=== PATIENT | male | born 1940 | race Caucasian/White ===

== ENCOUNTER 2016-07-06 10:34 | Observation (INO) | payer MEDICARE, OTHER ==
[~2016-07-06] VITALS: Ht 170.2 cm; Wt 79.5 kg
[2016-07-06] MEDS ORDERED: FAMOTIDINE 20 MG INJ IV STA (16:05)
[2016-07-06] MEDS ORDERED: SOD CHLORIDE 0.9% 1,000 ML IV STA (16:05)
[2016-07-06] MEDS ORDERED: ONDANSETRON 4 MG INJ IV STA (16:05)
[2016-07-06] MEDS ORDERED: ASPIRIN 325 MG TAB PO STA (16:28)
--- NOTE | 2016-07-06 16:28 | ERA ---
ER Documentation Chief Complaint Date/Time DATE: 07/06/16 TIME: 16:15 Chief Complaint CHEST PAIN SINCE YESTERDAY HPI This is a 75-year-old [place]ralt[place] speaking male with known history of asthma and hypertension that presents to the emergency department complaining of intermittent chest pressure that has been present for roughly 24 hours. At 5: 30 PM 24 hours ago the patient indicated that he felt as though he had not "completely digested his food." He felt a burning sensation in his chest that turned into a pressure-like sensation. At 8 PM yesterday evening he had an episode of nonbloody nonbilious emesis. Roughly every 30 minutes between 8 PM and 12 midnight yesterday the patient had nonbloody nonbilious emesis. He denied any abdominal discomfort. He had no diarrhea. He stated the pressure sensation did not radiate to the neck arm back or jaw and was localized to the left substernal region. The pressure in his chest was 7 out of 10 in intensity. He did not take any analgesic medication prior to arrival. He has no headache. He denies any changes in vision. He has no shortness of breath at rest or exertion. He denies any recent travel, prolonged immobilization or hospitalizations. The patient has never seen a customer service representative in the past but his sees a customer service representative Dr. Degroot out of [facility]. The patient smoked tobacco for 30 years and quit 26 years prior to arrival and denies any alcohol use or illicit drug use ROS All systems reviewed and are negative except as per history of present illness. Medications Home Meds Reported Medications Dexlansoprazole (Dexilant) 60 Mg Cap., 60 MG PO DAILY, #30 CAP 07/06/16 Montelukast Sodium* (Montelukast Sodium*) 10 Mg Tablet, 10 MG PO DAILY, #30 TAB 07/06/16 Aspirin* (Aspirin* EC) 81 Mg Tablet., 81 MG PO DAILY, TAB 07/06/16 Amlodipine Besylate* (Amlodipine Besylate*) 10 Mg Tablet, 10 MG PO DAILY, #30 TAB 07/06/16 Clonidine Hcl* (Clonidine Hcl*) 0.1 Mg Tab, 0.1 MG PO BID, TAB 07/06/16 Valsartan* (Diovan*) 320 Mg Tablet, 320 MG PO DAILY, TAB 07/06/16 Umeclidinium [place] (Incruse Ellipta) 62.5 Mcg Blst.w.dev, 62.5 MCG IH DAILY 07/06/16 Lorazepam* (Ativan*) 2 Mg Tablet, 2 MG PO BID Y for ANXIETY, #30 TAB 07/06/16 Albuterol Sulfate* (Ventolin HFA*) 18 Gm Hfa.aer.ad, 2 PUFF INHALATION Q4H, #1 INHALER 07/06/16 Apixaban* (Eliquis*) 5 Mg Tablet, 5 MG PO BID, TAB 07/06/16 Ergocalciferol (Vitamin D2) (VITAMIN D2) 50,000 Unit Capsule, 66993 UNIT PO Q7D , CAP 07/06/16 Cyanocobalamin* (Vitamin B-12*) 1,000 Mcg Tablet.sa, 1000 MCG PO DAILY, TAB 07/06/16 Umeclidinium Brm-Vilanterol Tr (Anoro Ellipta) 62.5-25 Mcg Disk.w.dev, 1 EACH INHALATION BID, #1 DISK 07/06/16 Allergies Allergies: Coded Allergies: No Known Allergy (Unverified , 07/06/16) Physical Exam Vitals Vital Signs Date Time Temp Pulse Resp B/P Pulse Ox O2 Delivery O2 Flow Rate FiO2 07/06/16 18:17 98 18 137/84 99 Room Air 07/06/16 17:00 98.0 106 18 139/96 99 Room Air 07/06/16 16:25 Nasal Cannula 2 07/06/16 10:35 98.0 118 18 135/71 99 Physical Exam Constitutional:Well-developed. Well-nourished. HEENT:Normocephalic. Atraumatic.Pupils were equal round reactive to light. Dry mucous membranes.No tonsillar exudates. Neck: No nuchal rigidity. No lymphadenopathy. No posterior cervical spine tenderness or step-offs. Respiratory: Not using accessory muscles of respiration.Lungs were clear to auscultation bilaterally. No rhonchi. No rales. No wheezing. Cardiovascular: Regular rate regular rhythm.No murmurs. No rubs were appreciated.S1, S2 normal. Distal pulses are palpable 2+ bilaterally. GI: Abdomen was soft. Nontender. Non Distended. No pulsatile abdominal masses or bruits. No rebound. No guarding. Bowel sounds were present and normal. Muscle skeletal: Full range of motion of both the upper and lower extremities bilaterally.Normal muscle tone.No assymetrical calf tenderness or swelling. Skin: No petechia, no purpura. No lesions on the palms or the soles of the feet. No maculopapular rash. NEURO: Patient was alert, awake, orientated x3.No facial droop. Gait observed and normal with no ataxia.Speech had regular rate and rhythm. No focal neurological deficits. Result Diagram: 07/06/16 1614 07/06/16 1614 Results 24 hrs Laboratory Tests Test 07/06/16 16:14 Activated Partial Thromboplast Time 41.7Sec Alanine Aminotransferase (ALT/SGPT) 25IU/L Albumin 4.6g/dl Albumin/Globulin Ratio 1.27 Alkaline Phosphatase 88IU/L Amylase Level 37U/L Anion Gap 21 Aspartate Amino Transf (AST/SGOT) 16IU/L B-Type Natriuretic Peptide 2550PG/ML Basophils # 0.010^3/ul Basophils % 0.2% Blood Urea Nitrogen 15mg/dl Calcium Level 10.2mg/dl Carbon Dioxide Level 31mmol/L Chloride Level 99mmol/L Creatine Kinase 30IU/L Creatine Kinase Index 3.6 Creatinine 0.85mg/dl Creatinine Kinase MB (Mass) 1.07ng/ml Direct Bilirubin 0.00mg/dl Eosinophils # 0.010^3/ul Eosinophils % 0.1% Globulin 3.60g/dl Glucose Level 128mg/dl Hematocrit 43.8% Hemoglobin 14.4g/dl INR International Normalized Ratio 1.17 Indirect Bilirubin 1.0mg/dl Lactic Acid Level 2.2mmol/L Lipase 66U/L Lymphocytes # 2.010^3/ul Lymphocytes % 13.4% Mean Corpuscular Hemoglobin 29.1pg Mean Corpuscular Hemoglobin Concent 32.9g/dl Mean Corpuscular Volume 88.5fl Mean Platelet Volume 11.0fl Monocytes # 1.610^3/ul Monocytes % 10.3% Neutrophils # 11.510^3/ul Neutrophils % 75.5% Nucleated Red Blood Cells # 0.010^3/ul Nucleated Red Blood Cells % 0.0/100WBC Platelet Count 71151^3/UL Potassium Level 3.7mmol/L Prothrombin Time 15.0Sec Prothrombin Time Ratio 1.2 Red Blood Count 4.9510^6/ul Red Cell Distribution Width 13.4% Sodium Level 147mmol/L Total Bilirubin 1.0mg/dl Total Protein 8.2g/dl Troponin I < 0.012ng/ml White Blood Count 15.210^3/ul Current Medications Medications (Trade) Dose Ordered Sig/Feliciano Route PRN Reason Start Time Stop Time Status Last Admin Dose Admin Sodium Chloride (NS) 1,000 ml @ 1,000 mls/hr Q1H STAT IV 07/06/16 16:05 07/06/16 17:04 DC 07/06/16 17:03 Ondansetron HCl (Zofran Inj) 4 mg ONCE STAT IV 07/06/16 16:05 07/06/16 16:07 DC 07/06/16 17:03 Famotidine (Pepcid Iv) 20 mg ONCE STAT IV 07/06/16 16:05 07/06/16 16:07 DC 07/06/16 17:03 Aspirin (Aspirin) 325 mg ONCE STAT PO 07/06/16 16:28 07/06/16 16:29 DC 07/06/16 17:03 Nitroglycerin (Nitroglycerin (Sl Tab) 0.4 Mg) 1 tab Q5M UP TO 3 DOSES PRN SL CHEST PAIN 07/06/16 16:30 07/06/16 17:03 Furosemide (Lasix) 40 mg ONCE ONCE IV 07/06/16 18:30 07/06/16 18:31 DC 07/06/16 18:17 Ondansetron HCl (Zofran Inj) 4 mg ER BRIDGE PRN IV NAUSEA AND/OR VOMITING 07/06/16 18:30 07/07/16 18:29 Acetaminophen (Tylenol Tab) 650 mg ER BRIDGE PRN PO MILD PAIN/FEVER 07/06/16 18:30 07/07/16 18:29 Amlodipine Besylate (Norvasc) 10 mg DAILY PO 07/07/16 09:00 UNV Apixaban (Eliquis) 5 mg BID PO 07/06/16 21:00 UNV Aspirin (Halfprin) 81 mg DAILY PO 07/07/16 09:00 UNV Clonidine (Catapres) 0.1 mg BID PO 07/06/16 21:00 UNV Cyanocobalamin (Vitamin B12) 1,000 mcg DAILY PO 07/07/16 09:00 UNV Ergocalciferol (Drisdol) 50,000 unit Q7D PO 07/06/16 19:00 UNV Lorazepam (Ativan) 2 mg BID PRN PO ANXIETY 07/06/16 19:00 UNV Montelukast Sodium (Singulair) 10 mg DAILY PO 07/07/16 09:00 UNV Valsartan (Diovan) 320 mg DAILY PO 07/07/16 09:00 UNV Miscellaneous Information 60 mg DAILY PO 07/07/16 09:00 UNV Miscellaneous Information 1 each BID INHALATION 07/06/16 21:00 UNV Procedures/MDM The patient presented to the emergency department with chest pain. My clinical evaluation and workup was to distinguish minor causes of chest pain from acute life threatening conditions such as myocardial infarction, pulmonary embolism, aortic dissection, esophageal rupture, cardiac tamponade. The patient was placed on a potline monitor and continuous pulse oximetry. IV access established by nursing staff. The patient received 325 mg of aspirin p.o. The patient also received a liter bolus of 0.9 normal saline for clinical dehydration and given Zofran and Pepcid intravenously 12 Lead EKG tracing ordered at 10:41am and reviewed by the previous ER physician and reviewed by myself at 4:16 PM when I evaluated the patient showed : Sinus tachycardia 109 bpm and no arrhythmia. MO interval normal. QRS duration normal. ST segment elevation in the lateral leads V6 as well as 3 and aVF which could be result of artifact No ST segment depression. Q waves present in the anteroseptal leads V2 V3. I immediately requested for a repeat EKG to be performed when I evaluated the patient as he was still experiencing chest discomfort therefore I did repeat the EKG upon my evaluation at 416. 12 Lead EKG tracing ordered and reviewed by myself showed: Irregular regular rhythm at 100 bpm and no arrhythmia. MO interval not appreciated the patient appeared to be in atrial fibrillation QRS duration normal. ST segment elevation seen again less than 1 mm in the inferior lead II and III, with no reciprocal changes and appeared to be elevation due to motion artifact No ST segment depression. No changes consistent with acute ischemia. I spoke with the cold strip roller Dr. Faustin who was in agreement with my interpretation of the EKG and therefore the patient was not taken to the [facility] [place] at this time. The patient had an elevated BNP with a chest radiograph that showed mild pulmonary vascular congestion. I did feel the patient's symptoms could be exacerbated by new onset congestive heart failure. Had received nitroglycerin and IV Lasix. The patient had leukocytosis without a left shift. I did feel this could be a result of the patient's vomiting from a viral etiology. He was not complaining of any abdominal pain and had no peritoneal signs therefore did not feel is necessary to obtain a CT scan of the abdomen at this time. Patient will be admitted for observation under the care of the hospitalist receive serial 12-lead EKG tracings and cardiac set of enzymes due to further evaluation of his chest pain. The patient also has an outpatient appointment set up with a customer service representative Dr. Degroot, his 's customer service representative, who he has not yet seen, however has his first appointment on , July 08, 2016. The patient's son is named Scott and states he can be reached at [phone] and will be willing to fruit picker the patient at the time of discharge as well as provide translation as the patient is only [place] speaking. Departure Diagnosis: Primary Impression: Chest pain Qualified Code: R07.9 - Chest pain, unspecified type Additional Impression: CHF exacerbation Qualified Code: I50.9 - Acute on chronic congestive heart failure, unspecified congestive heart failure type Condition: Serious KACIE BONILLA Jul 06, 2016 16:28
[2016-07-06] MEDS ORDERED: NITROGLYCERIN (SL) 0.4 MG TAB SL PRN (16:30)
[2016-07-06 16:32] LABS: ADD SCAN DIFF NO
[2016-07-06 16:35] LABS: ABNORMAL IP MESSAGE 1; BASOPHILS % 0.2 % (0.0-2.0); EOSINOPHILS % 0.1 % (0.0-7.0); HEMATOCRIT 43.8 % (42.0-52.0); HEMOGLOBIN 14.4 g/dl (14.0-18.0); LYMPHOCYTES % 13.4 % (15.0-51.0); MEAN CORPUSCULAR HEMOGLOBIN 29.1 pg (29.0-33.0); MEAN CORPUSCULAR HGB CONC 32.9 g/dl (32.0-37.0); MEAN CORPUSCULAR VOLUME 88.5 fl (82.0-101.0); MONOCYTE # 1.6 10^3/ul (0.3-0.9); MONOCYTES % 10.3 % (0.0-11.0); NEUTROPHIL # 11.5 10^3/ul (1.6-7.5); NEUTROPHILS % 75.5 % (39.0-77.0); PLATELET COUNT 183 10^3/UL (140-415); RED BLOOD COUNT 4.95 10^6/ul (4.70-6.10); RED CELL DISTRIBUTION WIDTH 13.4 % (11.5-14.5); WHITE BLOOD COUNT 15.2 10^3/ul (4.8-10.8)
[2016-07-06] MEDS ORDERED: UMEC1DIS INHALATION (16:47)
[2016-07-06 16:48] LABS: ALBUMIN 4.6 g/dl (3.3-4.9); CHLORIDE 99 mmol/L (97-110); POTASSIUM 3.7 mmol/L (3.5-5.1); SODIUM 147 mmol/L (135-144)
[2016-07-06] MEDS ORDERED: CYAN100080 PO (16:48)
[2016-07-06] MEDS ORDERED: ERGO500037 PO (16:48)
[2016-07-06] MEDS ORDERED: APIX5TAB PO (16:49)
[2016-07-06 16:50] LABS: AMYLASE 37 U/L (11-123); CREATININE 0.85 mg/dl (0.61-1.24)
[2016-07-06] MEDS ORDERED: ALBU18HF INHALATION (16:50)
[2016-07-06 16:51] LABS: ALANINE AMINOTRANSFERASE 25 IU/L (13-69); ALBUMIN/GLOBULIN RATIO 1.27; ALKALINE PHOSPHATASE 88 IU/L (42-121); ANION GAP 21 (8-16); ASPARTATE AMINO TRANSFERASE 16 IU/L (15-46); BLOOD UREA NITROGEN 15 mg/dl (7-20); CALCIUM 10.2 mg/dl (8.4-10.2); CARBON DIOXIDE 31 mmol/L (21-31); CREATINE KINASE 30 IU/L (23-200); GLUCOSE 128 mg/dl (70-220); TOTAL PROTEIN 8.2 g/dl (6.1-8.1)
[2016-07-06] MEDS ORDERED: LORA-444 PO (16:51)
[2016-07-06] MEDS ORDERED: UMEC62.5 IH (16:52)
[2016-07-06] MEDS ORDERED: VALS320T11 PO (16:52)
[2016-07-06] MEDS ORDERED: AMLO-147 PO (16:53)
[2016-07-06] MEDS ORDERED: CLON-379 PO (16:53)
[2016-07-06] MEDS ORDERED: MONT10TA24 PO (16:54)
[2016-07-06] MEDS ORDERED: ASPI-664 PO (16:54)
[2016-07-06] MEDS ORDERED: DEXL60CA2 PO (16:55)
[2016-07-06 16:57] LABS: INR 1.17; PT RATIO 1.2
[2016-07-06 16:58] LABS: PARTIAL THROMBOPLASTIN TIME 41.7 Sec (25.0-35.0)
[2016-07-06 16:59] LABS: B-TYPE NATRIURETIC PEPTIDE 2550 PG/ML (0-450)
[2016-07-06 17:00] LABS: CK-MB 1.07 ng/ml (0.0-2.4)
[2016-07-06 17:14] LABS: TROPONIN-I < 0.012 ng/ml (0.00-0.12)
--- NOTE | 2016-07-06 17:59 | RADRPT ---
PROCEDURE: XR Chest AP portable CLINICAL INDICATION: Chest pain TECHNIQUE: An AP portable radiograph of the chest was submitted. COMPARISON: None. FINDINGS: Support Hardware: None Cardiovascular: The heart is mildly enlarged and the peripheral bony vasculature appears mildly citlail ested. The aorta is mildly atherosclerotic. Lung Chow: Foci of discoid atelectasis are seen at the lung bases, greater on the right on the lef t. Pleural Spaces: No pneumothorax or pleural effusion is identified. Osseous Structures: Degenerative spine changes are noted. Soft Tissues: The soft tissues appear unremarkable. IMPRESSION: 1. Mild cardiomegaly with mild pulmonary vascular congestion. 2. Mildly atherosclerotic aorta 3. Discoid atelectasis seen at the lung bases greater on the right on the left. Physician Stefano Date Time Electronically viewed and signed by Physician Stefano on 07/06/2016 17:58 /
[2016-07-06] MEDS ORDERED: ACETAMINOPHEN 325 MG TAB PO PRN (18:30)
[2016-07-06] MEDS ORDERED: ONDANSETRON 4 MG INJ IV PRN ×2 (18:30→19:00)
[2016-07-06] MEDS ORDERED: FUROSEMIDE 40 MG INJ IV ONE (18:30)
[2016-07-06] MEDS ORDERED: LORAZEPAM 1 MG TAB PO PRN (19:00)
--- NOTE | 2016-07-06 19:32 | HP ---
DATE OF ADMISSION: 07/06/2016 PRESENTING COMPLAINT: Chest pain. HISTORY OF PRESENTING COMPLAINT: Mr. Rankin is a 75-year-old male who was brought in by his fa timothy because of chest pain for 1 day's duration. Pain started yesterday and was associated with vom iting 1 time. The patient supposedly has a history of high blood pressure, but no other history of cardiac disease. When patient initially came in, there was some concern that his EKG had ST elevati on, but this was reviewed with the STEMI protein scientist and it was determined that this was not an act ual STEMI. The patient is being admitted for ACS rule out. Chest x-ray does show cardiomegaly with some pulmonary vascular congestion and he is also being admitted for probably new onset congestive heart failure. PAST MEDICAL HISTORY: Positive for: 1. High blood pressure. 2. Asthma. 3. Chronic tobacco use. PAST SURGICAL HISTORY: Positive for hernia repair. ALLERGIES: HE HAS NO KNOWN DRUG ALLERGIES. HOME MEDICATIONS: Include: 1. Dexilant 60 mg daily. 2. Montelukast 10 mg daily. 3. Aspirin 81 daily. 4. Amlodipine 10 mg daily. 5. Clonidine 0.1 b.i.d. 6. Diovan 320 daily. 7. Aclidinium bromide 1 inhalation daily. 8. Ativan 2 mg b.i.d. p.r.n. anxiety. 9. Ventolin inhaler as needed. 10. Eliquis 5 mg b.i.d. 11. Vitamin D2 at 50,000 units every 7 days. 12. Vitamin B12 at 1000 mcg daily. FAMILY HISTORY: Negative for premature coronary artery disease. SOCIAL HISTORY: Positive for tobacco use. Denies alcohol or illicit drug use. REVIEW OF SYSTEMS: A 12-point review of system was done, and the patient pertinent findings essenti ally as noted. The pain is described as pressure sensation, nonradiating, localized to the left sub sternal region. PHYSICAL EXAMINATION: VITAL SIGNS: Temperature 98.0, pulse 106, respirations 18, blood pressure 139/96, saturations 99% o n room air. GENERAL: The patient was alert and oriented, no distress. HEENT: Head is normocephalic. Pupils equal and reactive. Mucous membranes were moist. Posterior pharynx was clear of erythema and exudate. NECK: Supple without adenopathy or JVD. CHEST: Clear to auscultation. CARDIOVASCULAR: S1, S2. No murmurs. ABDOMEN: Soft, nontender, nondistended, normoactive bowel sounds. EXTREMITIES: There is no lower extremity edema. NEUROLOGIC: He had no focal deficits. SKIN: Devoid of rash or jaundice. LABORATORY VALUES: He had a leukocytosis of 15,000, but normal hemoglobin, normal hematocrit. His serum sodium was also mildly elevated at 147. Anion gap was 21, but blood glucose was normal. Lact ic acid was 2.2, borderline upper limit of normal. AST, ALT, the rest of his LFTs were normal. His B-natriuretic peptide was 2750, which is elevated. Amylase, lipase levels were normal. Coagulatio n profile was unremarkable. His first troponin was negative. IMAGING: Chest x-ray showed mild cardiomegaly with mild pulmonary vascular congestion, mildly arter iosclerotic aorta, and discoid atelectasis at lung bases, greater on the right than on the left. EKG, as mentioned earlier, was initially concerning for probable ST elevation. However, this was no t concern by the [facility] protein scientist, so there was sinus tachycardia and no other arrhythmia. In my assessment, this is an abnormal EKG; however, would defer further evaluation to consulting cardiolog ist. IMPRESSION: A 75-year-old male who presents with a 1-day history of nonremitting chest pain managed as follows: 1. Chest pain, rule out acute coronary syndrome. 2. Probable new congestive heart failure. 3. Probable mild chronic obstructive pulmonary disease exacerbation. 4. Chronic gastroesophageal reflux disease. 5. Chronic high blood pressure with good control. 6. Probable chronic obstructive pulmonary disease. 7. Bilateral atelectasis, for which we cannot rule out underlying pneumonia. 8. Reactive leukocytosis. 9. The patient is on anticoagulation therapy for which he is not sure why he is taking, which could be secondary to paroxysmal atrial fibrillation versus history of a blood clot versus pulmonary embo lism. PLAN: 1. To admit patient to telemetry floor. 2. Complete ACS rule out with 3 sets of cardiac enzymes as well as a 2D echo. The patient will holly efit from cardiology consultation, will notify Dr. Dooley. 3. I will also commence gentle diuresis for a couple of doses. 4. I think the patient will also benefit from a CT angio of the chest as well as bilateral lower ex tremity Dopplers to rule out DVT. 5. I will continue his current home medications and titrate medications as indicated while in-house . 6. Further interventions will depend on his clinical course. 7. For prophylaxis, he will be continued on his home Eliquis as well as his home PPI therapy. This plan of care has been discussed with the patient and his family. Questions have been answered. Admission time has been more than 50 minutes. Dictated By: SP ALBRIGHT MD, BA/ANNY Conf#: [id number] DID#: [id number]
[2016-07-06 20:01] VITALS: TEMP 98
[2016-07-06] MEDS ORDERED: NON-FORMULARY/PATIENT OWN MED (Umeclidinium Brm-Vilanterol Tr (Anoro Ellipta) 1 EACH) INHALATION SCH (21:00)
[2016-07-06 21:44] VITALS: PULSE 100
[2016-07-06 21:45] VITALS: BP 112/75; PULSE 113; RESP 20
[2016-07-06 22:40] VITALS: Ht 170.2 cm; Wt 79.5 kg
[2016-07-06 23:25] VITALS: BP 108/70; PULSE 106; RESP 20
[2016-07-06] MEDS: APIXABAN 5 MG TABLET PO SCH (23:28)
[2016-07-06] MEDS: DOCUSATE SODIUM 100 MG CAP PO SCH (23:28)
[2016-07-07] VITALS (7 sets, daily range): BP systolic 96–117; BP diastolic 55–85; PULSE 76–103; RESP 17–20
[2016-07-07 00:12] LABS: CREATINE KINASE 32 IU/L (23-200)
[2016-07-07 00:23] LABS: CK-MB 1.19 ng/ml (0.0-2.4)
[2016-07-07 00:30] LABS: TROPONIN-I < 0.012 ng/ml (0.00-0.12)
[2016-07-07] MEDS ORDERED: PANTOPRAZOLE (EC) 40 MG TAB PO SCH (06:00)
[2016-07-07] MEDS: DOCUSATE SODIUM 100 MG CAP PO SCH (08:18)
[2016-07-07] MEDS: APIXABAN 5 MG TABLET PO SCH (08:18)
--- NOTE | 2016-07-07 08:58 | CONS ---
Date/Time of Note Date/Time of Note DATE: 07/07/16 TIME: 08:32 Assessment/Plan Assessment/Plan Chief Complaint/Hosp Course Chest pain: Somewhat atypical as it occurred after vomiting and may just be GI in origin but the pt has significant risk factors for CAD and a stress test is indicated. SOB: initially thought to be secondary to heart failure and was given lasix 40mg IV x1. On my exam he is currently euvolemic Atrial fibrillation: ?chronic vs paroxysmal. The fact that he was prescribed Eliquis (though likely isnt taking it) tells me he has had it before. He was supposed to see a build technician tomorrow and I wonder if this was diagnosed by his PCP and he was referred for this.Will need to hold Eliquis in case stress test is positive and he requires cath HTN: well controlled Asthma Prior tobacco use: quit 1989 per pt -echo -stress MPI today. If negative, can be discharged. If positive will need cath -hold Eliquis in case pt needs cath -ASA, statin -start metoprolol 25mg BID -decrease amlodipine to 5mg to allow for MTP titration -continue valsartan, clonidine Problems: Consultation Date/Type/Reason Admit Date/Time Jul 06, 2016 at 21:53 Date of Consultation: Jul 07, 2016 Type of Consultation: Cardiology Reason for Consultation Chest pain Referring Provider: SP ALBRIGHT Hx of Present Illness 75 yo M with a h/o ?chronic afib on Eliquis, HTN, asthma, prior tobacco use ( quit 1989), who presented with chest pain and SOB and was rule dour for MS. Initially the pt was thought to have some concerning EKG changes which were reviewed by the panel interventionalist and thought not to be a STEMI appropriately. The pt was thought to have mild CHF for which he was given lasix. He is not a good historian but he tells me that 2 nights ago he started to have chest pain which he describes as pressure and sharp in his substernal, left chest wall area. He also was having SOB but denies orthopnea. He slept and in the morning was still not feeling well so he decided to come in for evaluation. He denies prior h/o of heart issues and he has never had chest pain. He is active and asymptomatic with exertion. He also denies taking Eliquis and does not know of any diagnosis which might require its use including atrial fibrillation but apparently he was supposed to see a build technician tomorrow. He takes ASA only. I also spoke with the pt's son by phone and he tells me that the pt had nausea Tuesday afternoon (2 days ago) and had vomiting. After he vomited he was not feeling well and started complaining of chest pain at that time. The son is also unaware of the pt's Eliquis. per HPI Past Medical History per hPI Social History Smoking Status: Former smoker Exam/Review of Systems Vital Signs Vitals Vital Signs Date Time Temp Pulse Resp B/P Pulse Ox O2 Delivery O2 Flow Rate FiO2 07/07/16 07:47 98.4 85 18 117/85 98 07/06/16 23:25 Room Air 07/06/16 16:25 2 Intake and Output 07/06/16 07/06/16 07/07/16 15:00 23:00 07:00 Intake Total 120 ml 220 ml Balance 120 ml 220 ml Exam Constitutional: alert, oriented Psych: no complaints Head: atraumatic, normocephalic ENMT: nl external ears & nose Neck: No jvd Respiratory: clear to auscultation, No crackles/rales, No wheezing Cardiovascular: nl pulses, No edema, No regular rate and rhythm (IRIR), No systolic murmur Gastrointestinal: non-tender, soft, No distended Musculoskeletal: nl extremities to inspection Extremities: normal pulses Neurological: nl mental status, nl speech Skin: nl turgor, No rash or lesions Results EKG: afib, poor RW progression. No significant ST changes Result Diagram: 07/06/16 1614 07/06/16 1614 Results 24 hrs Laboratory Tests Test 07/06/16 16:14 07/06/16 23:30 Activated Partial Thromboplast Time 41.7 H Alanine Aminotransferase (ALT/SGPT) 25 Albumin 4.6 Albumin/Globulin Ratio 1.27 Alkaline Phosphatase 88 Amylase Level 37 Anion Gap 21 H Aspartate Amino Transf (AST/SGOT) 16 B-Type Natriuretic Peptide 2550 H Basophils # 0.0 Basophils % 0.2 Blood Urea Nitrogen 15 Calcium Level 10.2 Carbon Dioxide Level 31 Chloride Level 99 Creatine Kinase 30 32 Creatine Kinase Index 3.6 3.7 Creatinine 0.85 Creatinine Kinase MB (Mass) 1.07 1.19 Direct Bilirubin 0.00 Eosinophils # 0.0 Eosinophils % 0.1 Globulin 3.60 H Glucose Level 128 Hematocrit 43.8 Hemoglobin 14.4 INR International Normalized Ratio 1.17 Indirect Bilirubin 1.0 Lactic Acid Level 2.2 Lipase 66 Lymphocytes # 2.0 Lymphocytes % 13.4 L Mean Corpuscular Hemoglobin 29.1 Mean Corpuscular Hemoglobin Concent 32.9 Mean Corpuscular Volume 88.5 Mean Platelet Volume 11.0 H Monocytes # 1.6 H Monocytes % 10.3 Neutrophils # 11.5 H Neutrophils % 75.5 Nucleated Red Blood Cells # 0.0 Nucleated Red Blood Cells % 0.0 Platelet Count 183 Potassium Level 3.7 Prothrombin Time 15.0 H Prothrombin Time Ratio 1.2 Red Blood Count 4.95 Red Cell Distribution Width 13.4 Sodium Level 147 H Total Bilirubin 1.0 Total Protein 8.2 H Troponin I < 0.012 < 0.012 White Blood Count 15.2 H Medications Medications Current Medications Amlodipine Besylate (Norvasc) 10 mg DAILY PO ; Start 07/07/16 at 09:00 Apixaban (Eliquis) 5 mg BID PO Last administered on 07/06/16 23:28; Admin Dose 5 MG; Start 07/06/16 at 22:30 Aspirin (Halfprin) 81 mg DAILY PO ; Start 07/07/16 at 09:00 Clonidine (Catapres) 0.1 mg BID PO Last administered on 07/06/16 23:29; Admin Dose 0.1 MG; Start 07/06/16 at 22:30 Cyanocobalamin (Vitamin B12) 1,000 mcg DAILY PO ; Start 07/07/16 at 09:00 Ergocalciferol (Drisdol) 50,000 unit Q7D PO ; Start 07/12/16 at 09:00 Lorazepam (Ativan) 2 mg BID PRN PO ANXIETY; Start 07/06/16 at 19:00 Montelukast Sodium (Singulair) 10 mg DAILY PO ; Start 07/07/16 at 09:00 Valsartan (Diovan) 320 mg DAILY PO ; Start 07/07/16 at 09:00 Pantoprazole (Protonix Tab) 40 mg DAILY@06 PO Last administered on 07/07/16 06: 40; Admin Dose 40 MG; Start 07/07/16 at 06:00 Miscellaneous Information 1 each BID INHALATION ; Start 07/06/16 at 21:00; Status UNV Ondansetron HCl (Zofran Inj) 4 mg Q6H PRN IV NAUSEA AND/OR VOMITING; Start 07/06 at 19:00 Docusate Sodium (Colace) 100 mg BID PO Last administered on 07/06/16t 23:28; Admin Dose 100 MG; Start 07/06/16 at 22:30 SCARLETT ALFRED Jul 07, 2016 08:42
[2016-07-07] MEDS ORDERED: AMLODIPINE 10 MG TAB PO SCH ×2 (09:00)
[2016-07-07] MEDS ORDERED: MONTELUKAST 10 MG TAB PO SCH (09:00)
[2016-07-07] MEDS ORDERED: VALSARTAN 160 MG TAB PO SCH (09:00)
[2016-07-07] MEDS ORDERED: ASPIRIN (EC) 81 MG TAB PO SCH (09:00)
[2016-07-07] MEDS ORDERED: CYANOCOBALAMIN 500 MCG TAB PO SCH (09:00)
[2016-07-07 09:56] LABS: ADD SCAN DIFF NO
[2016-07-07] MEDS ORDERED: AMLODIPINE 5 MG TAB PO SCH (10:00)
--- NOTE | 2016-07-07 10:02 | RADRPT ---
Echocardiogram Report Patient Name: DAVIS FENTON Gender: Male Date: 1940 Study Date: 07-Jul-2016 Garde Manger: Gerri Kingsley [facility] Location: [address] Ref. Physician: SP ALBRIGHT Quality: Good Procedures: Transthoracic echocardiogram with complete 2D, M-Mode, and doppler examination. Indications: Chest Pain. 2D/M Mode Doppler Measurement Value Normal Ranges Measurement Value Normal Ranges LVIDd 2D 4.4 3.5 - 5.6 cm AV Peak Brandon 0.8 m/sec LVIDs 2D 2.4 2.1 - 4.1 cm AV Peak PG 2.4 mmHg LVPWd 2D 1.1 0.6 - 1.1 cm AI Peak PG 32.6 mmHg IVSd 2D 0.9 0.6 - 1.1 cm AI Peak Brandon 2.9 m/sec AoR Diam 2D 3.7 2.0 - 3.7 cm AI PHT 685.1 msec EDV 2D 85.7 cm3 TR Peak Brandon 2.8 m/sec ESV 2D 13.3 cm3 TR Peak PG 31.2 mmHg LA Dimen 2D 4.3 2.3 - 4.0 cm RVSP 34.0 mmHg Findings Left Ventricle: Normal left ventricular systolic function. Normal left ventricular cavity size. Mild concentric left ventricular hypertrophy. Ejection fraction is visually estimated at 55 %. Right Ventricle: Normal right ventricular size. Normal right ventricular systolic function. Left Atrium: There is severe enlargement of left atrium. Right Atrium: There is moderate enlargement of right atrium. Mitral Valve: Mild mitral annular calcification. Mild mitral valve regurgitation. Aortic Valve: Aortic cusps appear mildly calcified. Mild to moderate aortic valve regurgitation. Tricuspid Valve: Normal appearance of the tricuspid valve. Estimated peak PA systolic pressure 34 mmHg. There is mild to moderate tricuspid regurgitation. Pulmonic Valve: Normal pulmonic valve appearance. There is mild pulmonic regurgitation. Pericardium: Normal pericardium with no significant pericardial effusion. Aorta: Dilated aortic root and ascending aorta measuring 4.3 cm at the Sinuses of Valsalva, 4.1 cm at the sinotubular junction, and 4.3 cm at the ascending aorta. IVC: The IVC is not well visualized. Conclusions 1.Normal left ventricular systolic function. Normal left ventricular cavity size. Mild concentric left ventricular hypertrophy. Ejection fraction is visually estimated at 55 %. 2.Mild to moderate aortic valve regurgitation. 3.Dilated aortic root and ascending aorta measuring 4.3 cm at the Sinuses of Valsalva, 4.1 cm at the sinotubular junction, and 4.3 cm at the ascending aorta. 4.Estimated peak PA systolic pressure 34 mmHg plus RA pressure. Electronically Signed By: Jack Dooley 07-Jul-2016 10:01:32 -0800 Patient Name: DAVIS FENTON Study Date: 07-Jul-2016 [id number]
[2016-07-07 10:14] LABS: CREATINE KINASE 26 IU/L (23-200)
[2016-07-07 10:17] LABS: CREATININE 0.88 mg/dl (0.61-1.24)
[2016-07-07 10:18] LABS: CALCIUM 9.2 mg/dl (8.4-10.2); CHOL/HDL RATIO 3.5 RATIO; MAGNESIUM 1.7 mg/dl (1.7-2.5)
[2016-07-07 10:26] LABS: BASOPHIL # 0.1 10^3/ul (0.0-0.1); BASOPHILS % 0.4 % (0.0-2.0); EOSINOPHILS # 0.1 10^3/ul (0.0-0.5); EOSINOPHILS % 0.8 % (0.0-7.0); HEMATOCRIT 40.7 % (42.0-52.0); HEMOGLOBIN 13.1 g/dl (14.0-18.0); LYMPHOCYTES # 1.7 10^3/ul (0.8-2.9); LYMPHOCYTES % 14.2 % (15.0-51.0); MEAN CORPUSCULAR HEMOGLOBIN 28.9 pg (29.0-33.0); MEAN CORPUSCULAR HGB CONC 32.2 g/dl (32.0-37.0); MEAN CORPUSCULAR VOLUME 89.6 fl (82.0-101.0); MEAN PLATELET VOLUME 11.6 fl (7.4-10.4); MONOCYTE # 1.2 10^3/ul (0.3-0.9); MONOCYTES % 10.2 % (0.0-11.0); NEUTROPHIL # 8.7 10^3/ul (1.6-7.5); PLATELET COUNT 160 10^3/UL (140-415); RED BLOOD COUNT 4.54 10^6/ul (4.70-6.10); RED CELL DISTRIBUTION WIDTH 13.6 % (11.5-14.5); WHITE BLOOD COUNT 11.7 10^3/ul (4.8-10.8)
[2016-07-07 10:30] LABS: CK-MB 0.94 ng/ml (0.0-2.4); TROPONIN-I < 0.012 ng/ml (0.00-0.12)
[2016-07-07] MEDS ORDERED: METOPROLOL 25 MG TAB PO SCH (11:00)
[2016-07-07] MEDS ORDERED: REGADENOSON 0.4 MG/5 ML SYG ONE (11:10)
--- NOTE | 2016-07-07 11:18 | PN ---
Date/Time of Note Date/Time of Note DATE: 07/07/16 TIME: 11:15 Assessment/Plan VTE Prophylaxis VTE Prophylaxis Intervention: other (eliquis) Lines/Catheters IV [facility]from [facility] Saline Lock Assessment/Plan Assessment/Plan A 75-year-old male who presents with a 1-day history of non remitting chest pain managed as follows: 1. Chest pain, rule out acute coronary syndrome. 2. Probable new congestive heart failure. 3. Probable mild chronic obstructive pulmonary disease exacerbation. 4. Chronic gastroesophageal reflux disease. 5. Chronic high blood pressure with good control. 6. Probable chronic obstructive pulmonary disease. 7. Bilateral atelectasis, for which we cannot rule out underlying pneumonia. 8. Reactive leukocytosis. 9. Chronic Afib PLAN: Stress test today appreciate cardio input and mgt Supportive care Subjective 24 Hr Interval Summary Free Text/Dictation Patient seen and examined. no more chest pain Exam/Review of Systems Vital Signs Vitals Vital Signs Date Time Temp Pulse Resp B/P Pulse Ox O2 Delivery O2 Flow Rate FiO2 07/07/16 08:40 82 07/07/16 07:47 98.4 18 117/85 98 07/06/16 23:25 Room Air 07/06/16 16:25 2 Intake and Output 07/06/16 07/06/16 07/07/16 15:00 23:00 07:00 Intake Total 120 ml 220 ml Balance 120 ml 220 ml Exam GENERAL: The patient was alert and oriented, no distress. HEENT: Head is normocephalic. Pupils equal and reactive. Mucous membranes were moist. Posterior pharynx was clear of erythema and exudate. NECK: Supple without adenopathy or JVD. CHEST: Clear to auscultation. CARDIOVASCULAR: S1, S2. No murmurs. ABDOMEN: Soft, nontender, nondistended, normoactive bowel sounds. EXTREMITIES: There is no lower extremity edema. NEUROLOGIC: He had no focal deficits. SKIN: Devoid of rash or jaundice. Results Result Diagram: 07/07/16 0915 07/07/16 0915 Results 24 hrs Laboratory Tests Test 07/06/16 16:14 07/06/16 23:30 07/07/16 09:15 Activated Partial Thromboplast Time 41.7 H Alanine Aminotransferase (ALT/SGPT) 25 Albumin 4.6 Albumin/Globulin Ratio 1.27 Alkaline Phosphatase 88 Amylase Level 37 Anion Gap 21 H 17 H Aspartate Amino Transf (AST/SGOT) 16 B-Type Natriuretic Peptide 2550 H Basophils # 0.0 0.1 Basophils % 0.2 0.4 Blood Urea Nitrogen 15 17 Calcium Level 10.2 9.2 Carbon Dioxide Level 31 30 Chloride Level 99 101 Creatine Kinase 30 32 26 Creatine Kinase Index 3.6 3.7 3.6 Creatinine 0.85 0.88 Creatinine Kinase MB (Mass) 1.07 1.19 0.94 Direct Bilirubin 0.00 Eosinophils # 0.0 0.1 Eosinophils % 0.1 0.8 Globulin 3.60 H Glucose Level 128 169 Hematocrit 43.8 40.7 L Hemoglobin 14.4 13.1 L INR International Normalized Ratio 1.17 Indirect Bilirubin 1.0 Lactic Acid Level 2.2 Lipase 66 Lymphocytes # 2.0 1.7 Lymphocytes % 13.4 L 14.2 L Mean Corpuscular Hemoglobin 29.1 28.9 L Mean Corpuscular Hemoglobin Concent 32.9 32.2 Mean Corpuscular Volume 88.5 89.6 Mean Platelet Volume 11.0 H 11.6 H Monocytes # 1.6 H 1.2 H Monocytes % 10.3 10.2 Neutrophils # 11.5 H 8.7 H Neutrophils % 75.5 74.0 Nucleated Red Blood Cells # 0.0 0.0 Nucleated Red Blood Cells % 0.0 0.0 Platelet Count 183 160 Potassium Level 3.7 4.0 Prothrombin Time 15.0 H Prothrombin Time Ratio 1.2 Red Blood Count 4.95 4.54 L Red Cell Distribution Width 13.4 13.6 Sodium Level 147 H 144 Total Bilirubin 1.0 Total Protein 8.2 H Troponin I < 0.012 < 0.012 < 0.012 White Blood Count 15.2 H 11.7 #H Cholesterol Level 123 Cholesterol/HDL Ratio 3.5 HDL Cholesterol 35 LDL Cholesterol, Calculated 67 Magnesium Level 1.7 Thyroid Stimulating Hormone (TSH) Pending Triglycerides Level 105 Medications Medications Current Medications Aspirin (Halfprin) 81 mg DAILY PO Last administered on 07/07/16 08:18; Admin Dose 81 MG; Start 07/07/16 at 09:00 Clonidine (Catapres) 0.1 mg BID PO Last administered on 07/07/16 08:18; Admin Dose 0.1 MG; Start 07/06/16 at 22:30 Cyanocobalamin (Vitamin B12) 1,000 mcg DAILY PO Last administered on 07/07/16 08:18; Admin Dose 1,000 MCG; Start 07/07/16 at 09:00 Ergocalciferol (Drisdol) 50,000 unit Q7D PO ; Start 07/12/16 at 09:00 Lorazepam (Ativan) 2 mg BID PRN PO ANXIETY; Start 07/06/16 at 19:00 Montelukast Sodium (Singulair) 10 mg DAILY PO Last administered on 07/07/16 08: 18; Admin Dose 10 MG; Start 07/07/16 at 09:00 Valsartan (Diovan) 320 mg DAILY PO Last administered on 07/07/16 08:19; Admin Dose 320 MG; Start 07/07/16 at 09:00 Pantoprazole (Protonix Tab) 40 mg DAILY@06 PO Last administered on 07/07/16 06: 40; Admin Dose 40 MG; Start 07/07/16 at 06:00 Miscellaneous Information 1 each BID INHALATION ; Start 07/06/16 at 21:00; Status UNV Ondansetron HCl (Zofran Inj) 4 mg Q6H PRN IV NAUSEA AND/OR VOMITING; Start 07/06 at 19:00 Docusate Sodium (Colace) 100 mg BID PO Last administered on 07/07/16 08:18; Admin Dose 100 MG; Start 07/06/16 at 22:30 Metoprolol Tartrate (Lopressor) 25 mg BID PO Last administered on 07/07/16 10: 07; Admin Dose 25 MG; Start 07/07/16 at 11:00 Amlodipine Besylate (Norvasc) 5 mg DAILY PO Last administered on 07/07/16 10:07 ; Admin Dose 5 MG; Start 07/07/16 at 10:00 Procedures Procedures PROCEDURE: XR Chest AP portable CLINICAL INDICATION: Chest pain TECHNIQUE: An AP portable radiograph of the chest was submitted. COMPARISON: None. FINDINGS: Support Hardware: None Cardiovascular: The heart is mildly enlarged and the peripheral bony vasculature appears mildly congested. The aorta is mildly atherosclerotic. Lung Chow: Foci of discoid atelectasis are seen at the lung bases, greater on the right on the left. Pleural Spaces: No pneumothorax or pleural effusion is identified. Osseous Structures: Degenerative spine changes are noted. Soft Tissues: The soft tissues appear unremarkable. IMPRESSION: 1. Mild cardiomegaly with mild pulmonary vascular congestion. 2. Mildly atherosclerotic aorta 3. Discoid atelectasis seen at the lung bases greater on the right on the left. Physician Stefano Date Time Electronically viewed and signed by Paco Mcneil Physician on 07/06/2016 17:58 MAGALI/ SP ALBRIGHT Jul 07, 2016 11:18
--- NOTE | 2016-07-07 11:44 | OPR ---
Date/Time of Note Date/Time of Note DATE: 07/07/16 TIME: 11:43 Operative Report Free Text/Dictation Nuclear medicine myocardial perfusion imaging: Date: 07/07/2016 Indication: Chest pain After informed consent, the patient was given IV Lexiscan. Pt was monitored for a total of 8 minutes post-infusion without any sings of arrhythmias. Patient had no chest pain or EKG changes. Please refer to separate note for imaging results. SCARLETT ALFRED Jul 07, 2016 11:43
[2016-07-07 12:00] LABS: THYROID STIMULATING HORMONE 2.44 MIU/L (0.465-4.680)
--- NOTE | 2016-07-07 12:55 | RADRPT ---
PROCEDURE: Nuclear medicine myocardial perfusion scan CLINICAL INDICATION: Chest pain TECHNIQUE: 31.0 mCi of technetium 99m Cardiolite was administered for the stress study. 10.5 mCi of technetium 99m Cardiolite was administered for the resting study. The patient was stressed with 0 .4 mg of Lexiscan. Images were reviewed in the short axis, vertical long axis, and horizontal long axis views. Wall motion was assessed and ejection fraction was calculated as well. Images were revi ewed on a high-resolution PACS workstation. COMPARISON: None available FINDINGS: Left ventricular size is within normal limits. There is moderate soft tissue and bowel attenuation artifact. The stress tomographic images demonstrate a normal pattern of perfusion. The resting shona ographic images demonstrate a similar pattern. There is no evidence for reversible ischemia. Wall motion is normal. The ejection fraction is calculated at 55%. IMPRESSION: 1. Negative myocardial perfusion scan. 2. There is no evidence for reversible ischemia. 3. Normal wall motion with normal ejection fraction of 55%. RPTAT: HMJB .Gagan Mora MD, MD Date Time Electronically viewed and signed by .Gagan Mora MD, MD on 07/07/2016 12:54 .B/
[2016-07-07] MEDS ORDERED: AMLO-145 PO (13:58)
[2016-07-07] MEDS ORDERED: NIT4 SL (13:58)
[2016-07-07] MEDS ORDERED: METO-448 PO (13:58)
--- NOTE | 2016-07-07 14:11 | PDOCDIS ---
Discharge Instructions DIAGNOSIS Discharge Diagnosis: Chest pain CONDITION Patient Condition: Stable HOME CARE INSTRUCTIONS: Diet Instructions: Low Fat /Cholesterol ACTIVITY: Activity Restrictions: Slowly Increase Activity Rest between Activity OTHER ORDERS: Other Orders: Followup with your primary doctor within the next 1 week. Review your medication list with your nurse before leaving and if you need new prescriptions please let your nurse know. I have made changes to your home medications or given you new prescriptions, please let your primary doctor know as well. Stay compliant with your medications and report any side effects to your PCP or pharmacist. Return to the ER if you have any concerns and cannot reach your doctors or call your insurance company, they usually have a nurse that can help you. SP ALBRIGHT Jul 07, 2016 14:10
[2016-07-07] MEDS ORDERED: POTA8CAP PO (14:13)
[2016-07-07] MEDS ORDERED: FURO20TA3 PO (14:13)
[2016-07-07] MEDS ORDERED: AMOX1TAB10 PO (14:14)
[2016-07-07] MEDS ORDERED: LACT1CAP57 PO (14:14)
--- NOTE | 2016-07-07 16:10 | RADRPT ---
PROCEDURE: US Lower extremity Venous. CLINICAL INDICATION: Bilateral lower extremity swelling TECHNIQUE: Multiple sonographic images of the bilateral lower extremity deep venous system was obt ained utilizing grayscale, color-flow, compressive sonography and doppler imaging with augmentation. The images were reviewed on a PACS workstation. COMPARISON: None. FINDINGS: There is normal compressibility and flow within the bilateral common femoral, superficial femoral , posterior tibial and popliteal veins. RPTAT: AA IMPRESSION: No sonographic evidence for deep venous thrombosis. .Alex Clark MD, MD Date Time Electronically viewed and signed by .Alex Clark MD, on 07/07/2016 16:09 .S/
[2016-07-07] MEDS ORDERED: MAGNESIUM SULFATE (GM) 50% 2 ML INJ IM SCH (17:00)
[2016-07-07] MEDS ORDERED: MAGNESIUM SULFATE 1 GM/D5W 100 ML IVPB ONE (18:00)
[2016-07-12] MEDS ORDERED: ERGOCALCIFEROL 50,000 UNIT CAP PO SCH (09:00)
--- NOTE | 2016-07-30 11:37 | DS ---
DATE OF ADMISSION: 07/06/2016 DATE OF DISCHARGE: 07/07/2016 PRESENTING COMPLAINT: Chest pain. FINAL DIAGNOSES: 1. Chest pain, rule out acute coronary syndrome. 2. Shortness of breath secondary to mild new congestive heart failure. 3. Probable paroxysmal atrial fibrillation diagnosed by primary care physician. 4. High blood pressure, controlled 5. Asthma/chronic obstructive pulmonary disease, stable. 6. History of tobacco use. 7. Dyslipidemia. 8. Reactive leukocytosis. CONSULTS ON THE CASE: Jack Dooley MD from cardiology. INTERVENTIONS: The patient underwent a nuclear medicine stress test and the findings were negative myocardial perfusion scan, no evidence of reversible ischemia, normal wall motion with normal ejecti on fraction of 55%. The patient also underwent a chest x-ray that just showed bilateral atelectasis, greater on the righ t than the left, mild aortic atherosclerosis and some cardiomegaly with some pulmonary vascular citlali estion. He also underwent lower extremity venous studies that showed no evidence of DVT. HOSPITALIZATION COURSE: Full details are available in the chart for review. In summary, this patie nt had come in with concerns of chest pain and an elevated white count. Chest x-ray was suggestive of mild pulmonary congestion. He also had an elevated BNP. Hence, he was diagnosed as above. He un derwent a nuclear medicine perfusion scan to rule out acute coronary syndrome, which was negative. We appreciate cardiology input in the management of this patient. His risk factors were positive fa timothy history, positive tobacco use and probable diagnosis of paroxysmal atrial fibrillation. He did well and at the time of discharge after being ruled out, he was in stable condition and was dischar [facility] home on the following medications. DISCHARGE MEDICATIONS: 1. Amlodipine 5 mg daily. 2. Augmentin 875 b.i.d. 3. Lasix 20 daily. 4. Culturelle 1 cap b.i.d. 5. Metoprolol 25 t.i.d. 6. Nitroglycerin p.r.n. 7. Potassium chloride 10 mEq daily. Note that Lasix and potassium were given just for 3 days. 8. Albuterol inhaler to be used as needed. 9. The patient was continued on his home . 10. Aspirin 81 daily. 11. Clonidine 0.1 b.i.d. 12. Vitamin B12 1 mg daily. 13. Dexilant 60 daily. 14. Vitamin D2 50,000 units every 7 days. 15. Ativan 2 mg p.o. b.i.d. p.r.n. 16. Montelukast 10 daily. 17. Ellipta inhalation b.i.d. 18. Diovan 320 daily. DISPOSITION: To home. ACTIVITIES: As tolerated. DIET: Recommended diet is low cholesterol, low fat. FOLLOWUP: The patient is recommended to follow up with his primary care physician within 1 to 2 we ks. He has an outpatient followup scheduled with cardiology. He is encouraged to keep this appoint ment. Dictated By: SP ALBRGIHT MD, BA/ANNY Conf#: [id number] DID#: [id number]
== END 2016-07-07 18:47 | disposition home or self-care (01) ==
LOC: E/R 10:34 → TEL 21:44 → INTOOBSV 21:53 → TEL 21:53
PROVIDERS: ADMIT Family Medicine; ATTEND Family Medicine
DX: R07.9 Chest pain, unspecified (principal); I48.2 Chronic atrial fibrillation; I10 Essential (primary) hypertension; J98.11 Atelectasis; K21.9 Gastro-esophageal reflux disease without esophagitis; D72.829 Elevated white blood cell count, unspecified; J44.9 Chronic obstructive pulmonary disease, unspecified; J45.909 Unspecified asthma, uncomplicated; Z87.891 Personal history of nicotine dependence; E78.5 Hyperlipidemia, unspecified
CPT/HCPCS: 36415; 71010; 78452; 80048; 80053; 80061; 82150; 82550; 82553; 83605; 83690; 83735; 83880; 84443; 84484; 85025; 85610; 85730; 93005; 93017; 93306; 93970; 96374; 96375; 99285; A9500; A9505; G0378; J1940; J2405; J2785; J3475; J7030